=== PATIENT | female | born 1985 | race Caucasian/White ===

== ENCOUNTER → 2019-11-09 18:05 | Observation (INO) ==
[2019-11-09 17:01] LABS: Bilirubin,Urine Negative (Negative); Blood,Urine Negative (Negative); Clarity,Urine Clear (Clear); Color,Urine Yellow (Yellow); Glucose,Urine (UA) Normal (Normal); Ketones,Urine Trace mg/dL (Negative); Leukocyte Esterase,Urine Negative (Negative); Nitrite,Urine Negative (Negative); PH,Urine 6.5 pH Units (5.0-8.0); Protein,Urine Negative (Neg-Trace); Specific Gravity,Urine 1.011 (1.010-1.025); Urobilinogen,Urine Normal (Normal)
== END | disposition home or self-care (01) ==
LOC: 1NENULAB
PROVIDERS: ADMIT Advanced Practice Midwife; ATTEND Advanced Practice Midwife

== ENCOUNTER 2019-11-19 01:52 | Inpatient (IN) ==
[~2019-11-19 01:52] MED LIST: *HR* FentaNYL (PF) 100 MCG/2 ML VIAL IVP PRN; Famotidine 20 MG/2 ML VIAL IVP PRN; Lidocaine 1% 20 ML MDV INFILT PRN; Metoclopramide 10 MG/2 ML VIAL IVP PRN; Naloxone 0.4 MG/ML INJ IVP PRN
[2019-11-19] MEDS ORDERED: Ringers Solution, Lactated 1,000 ML IVC SCH ×2 (02:00→16:31)
[2019-11-19 02:43] LABS: Basophils # 0.1 K/mcL (0.0-0.2); Basophils % 0.4 %; Eosinophils # 0.1 K/mcL (0.0-0.6); Eosinophils % 0.7 %; Hematocrit 33.1 % (35.3-44.9); Hemoglobin 10.7 g/dL (11.5-15.4); Immature Granulocytes % 0.5 % (0-4); Lymphocytes # 2.4 K/mcL (0.6-4.6); Lymphocytes % 17.8 %; Mean Corpuscular HGB Conc 32.3 g/dL (31.6-35.5); Mean Corpuscular Hemoglobin 28.5 pg (28.0-33.3); Mean Corpuscular Volume 88.3 fL (83.0-100.0); Mean Platelet Volume 12.1 fL (9.4-12.4); Monocytes # 0.8 K/mcL (0.0-1.3); Monocytes % 5.5 %; Neutrophils # 10.3 K/mcL (1.6-8.9); Platelet Count 303 K/mcL (140-400); Red Blood Count 3.75 M/mcL (3.82-4.97); Red Cell Distribution Width 13.7 % (11.5-14.5); Segmented Neutrophils % 75.1 %; White Blood Count 13.7 K/mcL (4.3-11.1)
[2019-11-19 03:11] LABS: Amphetamine Screen,Urine Negative ng/mL (Cutoff=1000); Barbiturate Screen,Urine Negative ng/mL (Cutoff=200); Benzodiazepines Screen,Urine Negative ng/mL (Cutoff=200); Cannabinoid Screen,Urine Negative ng/mL (Cutoff = 50); Cocaine Screen,Urine Negative ng/mL (Cutoff= 300); Opiate Screen,Urine Negative ng/mL (Cutoff=300); Phencyclidine Screen,Urine Negative ng/mL (Cutoff=25)
[2019-11-19] MEDS ORDERED: Bupivacaine-MPF 0.25% 10 ML VIAL ONE (03:23)
[2019-11-19] MEDS ORDERED: *HR* FentaNYL (PF) 100 MCG/2 ML VIAL ONE (03:23)
[2019-11-19] MEDS ORDERED: Epidural Premix (fent/bupiv) 110 ML EP ONE (03:40)
[2019-11-19] MEDS ORDERED: Bupivacaine-MPF 0.25% 10 ML VIAL EP ONE (03:48)
[2019-11-19] MEDS ORDERED: EPHEDrine 50 MG/ML VIAL IVP PRN (03:48)
[2019-11-19] MEDS ORDERED: Naloxone 0.4 MG/ML INJ IVP PRN ×2 (03:48→16:31)
[2019-11-19] MEDS ORDERED: Ondansetron 4 MG/2 ML VIAL IVP PRN (03:48)
[2019-11-19] MEDS ORDERED: *HR* FentaNYL (PF) 100 MCG/2 ML VIAL EP ONE (03:48)
[2019-11-19] MEDS ORDERED: Epidural Premix (fent/bupiv) 110 ML EP SCH (04:00)
[2019-11-19] MEDS ORDERED: Penicillin G Potassium 5,000,000 UNIT in 0.9 % Sodium Chloride Mini Bag 100 ML IVPB ONE (05:30)
[2019-11-19] MEDS ORDERED: Penicillin G Potassium 2,500,000 UNIT in 0.9 % Sodium Chloride 100 ML IVPB SCH (08:00)
[2019-11-19] MEDS ORDERED: Oxytocin 20 units/ LR 1000 mL 20 UNIT/1,000 ML BAG IVC SCH ×2 (08:15→16:31)
[2019-11-19] MEDS ORDERED: Rho Immune Globulin 1,500 UNIT SYRINGE IM PRN (16:31)
[2019-11-19] MEDS ORDERED: Benzocaine/Menthol 56 GM AEROSOL SPRAY TP PRN (16:31)
[2019-11-19] MEDS ORDERED: Lanolin 7 G OINT...G. TP PRN (16:31)
[2019-11-19] MEDS ORDERED: Acetaminophen 325 MG TABLET PO PRN (16:31)
[2019-11-19] MEDS: Ibuprofen 600 MG TABLET PO PRN ×2 (16:59→23:25)
[2019-11-20] MEDS: Ibuprofen 600 MG TABLET PO PRN (08:00)
[2019-11-20 08:04] VITALS: BP 119/87
[2019-11-20] MEDS ORDERED: Prenatal Vit/FA 1 EACH TABLET PO SCH ×3 (09:00)
== END 2019-11-20 14:28 | disposition home or self-care (01) | DRG 807 ==
LOC: 1NENULAB → 1NENUOBS 15:54
PROVIDERS: ADMIT Advanced Practice Midwife; ATTEND Advanced Practice Midwife